=== PATIENT | female | born 1985 | race Caucasian/White ===

== ENCOUNTER 2017-06-07 12:45 | Emergency (ER) | payer SELFPAY, OTHER ==
[2017-06-07] MEDS: HYDROCODONE/APAP (5/325) TAB PO (13:55)
[2017-06-07 14:25] LABS: ADD UMIC YES; UR ASCORBIC ACID NEGATIVE (NEGATIVE); UR BACTERIA FEW /HPF (NONE SEEN); UR BILIRUBIN (Dip) NEGATIVE (NEGATIVE); UR BLOOD (Dip) NEGATIVE (NEGATIVE); UR BUDDING YEAST FEW /HPF (NONE SEEN); UR CLARITY CLOUDY (CLEAR); UR COLOR YELLOW (YELLOW); UR GLUCOSE (Dip) NEGATIVE (NEGATIVE); UR KETONES (Dip) NEGATIVE (NEGATIVE); UR LEUKOCYTE ESTERASE (Dip) 1+ Leu/ul (NEGATIVE); UR MUCUS FEW /HPF (NONE SEEN); UR NITRITE (Dip) NEGATIVE (NEGATIVE); UR RBC 5 /HPF (0-5); UR SPECIFIC GRAVITY (Dip) 1.024 (1.003-1.030); UR SQUAMOUS EPITHELIAL CELL FEW /HPF (FEW); UR TOTAL PROTEIN (Dip) NEGATIVE (NEGATIVE); UR UROBILINOGEN (Dip) NEGATIVE (NEGATIVE); UR WBC 2 /HPF (0-5)
== END 2017-06-07 15:04 | disposition home or self-care (01) ==
LOC: FTE 12:45
DX: R51 Headache (principal); R07.89 Other chest pain
CPT/HCPCS: 71045; 81001; 99284-25

== ENCOUNTER 2017-11-28 21:21 | Emergency (ER) | payer OTHER ==
[2017-11-28] MEDS: KETOROLAC 15 MG INJ IM (22:55)
[2017-11-28 22:59] LABS: ADD UMIC YES; UR ASCORBIC ACID NEGATIVE (NEGATIVE); UR BACTERIA FEW /HPF (NONE SEEN); UR BILIRUBIN (Dip) NEGATIVE (NEGATIVE); UR BLOOD (Dip) 1+ mg/dL (NEGATIVE); UR CLARITY CLOUDY (CLEAR); UR COLOR RED (YELLOW); UR GLUCOSE (Dip) NEGATIVE (NEGATIVE); UR KETONES (Dip) NEGATIVE (NEGATIVE); UR LEUKOCYTE ESTERASE (Dip) 2+ Leu/ul (NEGATIVE); UR MUCUS FEW /HPF (NONE SEEN); UR NITRITE (Dip) NEGATIVE (NEGATIVE); UR RBC 7 /HPF (0-5); UR SPECIFIC GRAVITY (Dip) 1.023 (1.003-1.030); UR SQUAMOUS EPITHELIAL CELL FEW /HPF (FEW); UR TOTAL PROTEIN (Dip) NEGATIVE (NEGATIVE); UR UROBILINOGEN (Dip) NEGATIVE (NEGATIVE); UR WBC 4 /HPF (0-5)
== END 2017-11-29 | disposition home or self-care (01) ==
LOC: FTE 11-29
DX: S29.012A Strain of muscle and tendon of back wall of thorax, initial encounter (principal); N30.01 Acute cystitis with hematuria; M94.0 Chondrocostal junction syndrome [Tietze]; X58.XXXA Exposure to other specified factors, initial encounter; Y92.9 Unspecified place or not applicable
CPT/HCPCS: 81001; 81025; 96372; 99284-25

== ENCOUNTER 2017-12-27 22:50 | Emergency (ER) | payer SELFPAY, OTHER ==
[2017-12-27 23:34] LABS: URINE PH (Dip) POC 5.5 (5.0-8.5)
[2017-12-27 23:34] LABS: URINE BLOOD (Dip) POC 2+ (NEGATIVE); URINE GLUCOSE (Dip) POC Negative (NEGATIVE); URINE KETONES (Dip) POC Trace (NEGATIVE); URINE LEUKOCYTE EST (Dip) POC Negative (NEGATIVE); URINE NITRITE (Dip) POC Negative (NEGATIVE); URINE TOTAL PROTEIN POC Negative (NEGATIVE)
== END 2017-12-28 00:59 | disposition home or self-care (01) ==
LOC: FTE 22:50
DX: S99.921A Unspecified injury of right foot, initial encounter (principal); X58.XXXA Exposure to other specified factors, initial encounter; Y92.9 Unspecified place or not applicable
CPT/HCPCS: 73630; 81003; 81025; 99283-25

== ENCOUNTER 2018-06-06 08:01 | Emergency (ER) | payer SELFPAY, OTHER ==
[2018-06-06] MEDS: PROMETHAZINE/DM (CUP) PO (08:47)
== END 2018-06-06 08:56 | disposition home or self-care (01) ==
LOC: FTE 08:01
DX: J06.9 Acute upper respiratory infection, unspecified (principal)
CPT/HCPCS: 99283